=== PATIENT | male | born 1990 | race Caucasian/White ===

== ENCOUNTER 2020-12-26 04:07 | Emergency (ER) | payer SELFPAY ==
[~2020-12-26 04:07] MED LIST: FEOSOL325 MG PO; FLAGYL500 MG PO; LEVAQUIN500 MG PO
== END 2020-12-26 07:02 | disposition home or self-care (01) ==
LOC: ER1 04:07
DX: S01.21XA Laceration without foreign body of nose, initial encounter (principal); F17.200 Nicotine dependence, unspecified, uncomplicated; Y04.0XXA Assault by unarmed brawl or fight, initial encounter
CPT/HCPCS: 12011; 99282